=== PATIENT | male | born 1945 | race Caucasian/White ===

== ENCOUNTER 2020-04-18 12:14 | Outpatient (CLI) | payer OTHER | END 2020-04-18 23:59 | disposition home or self-care (01) | LOC: CARD DIAG 12:14 | PROVIDERS: ATTEND Orthopaedic Surgery | DX: I08.8 Other rheumatic multiple valve diseases (principal); I25.10 Atherosclerotic heart disease of native coronary artery without angina pectoris | CPT/HCPCS: 93306 ==